=== PATIENT | male | born 1945 | race Caucasian/White ===

== ENCOUNTER 2023-04-14 09:29 | Emergency (ER) | payer OTHER ==
[2023-04-14 09:43] VITALS: TEMP 99; BMI 26.6
[2023-04-14] MEDS ORDERED: CLOPIDOGREL BISULFATE 75 MG TABLET (FP) ONE (10:39)
[2023-04-14] MEDS ORDERED: RAMIPRIL 5 MG CAPSULE ONE (10:39)
[2023-04-14] MEDS ORDERED: CARVEDILOL 12.5 MG TABLET (FP) ONE (10:39)
[2023-04-14] MEDS ORDERED: PANTOPRAZOLE 40 MG TABLET PO ONE (10:39)
[2023-04-14] MEDS: CLOPIDOGREL BISULFATE 75 MG TABLET (FP) PO ONE (10:42)
[2023-04-14] MEDS: PANTOPRAZOLE 40 MG TABLET PO ONE (10:42)
[2023-04-14] MEDS: CARVEDILOL 12.5 MG TABLET (FP) PO ONE (10:42)
[2023-04-14] MEDS: RAMIPRIL 5 MG CAPSULE PO ONE (10:42)
[2023-04-14] MEDS: ROSUVASTATIN CA 40 MG TABLET PO ONE (10:44)
[2023-04-14 10:55] LABS: BASO % 0.4 % (0-2.0); EOS % 0.3 % (0-4.5); HEMATOCRIT 35.7 % (35.4-49); HEMOGLOBIN 11.8 GM/dL (11.7-16.9); LYMPH % 12.6 % (8-40); MCH 28.6 pg (25.7-33.7); MCHC 33.1 g/dl (32.0-35.9); MEAN CELL VOLUME 86.2 fl (80-96); MEAN PLT VOLUME 7.5 fl (7.5-11.1); MONO % 9.3 % (3.8-10.2); NEUT % 77.4 % (42.8-82.8); PLATELET COUNT 368 10^3/uL (134-434); RBC 4.14 M/mm3 (4.00-5.60); RDW 16.3 % (11.9-15.9); WHITE BLOOD COUNT 12.4 K/mm3 (4.0-10.0)
[2023-04-14 10:57] LABS: EPI CELLS 0 /uL (0-25.1); HYALINE CASTS 0 /uL (0-3.1); URINE APPEARANCE CLOUDY; URINE BACTERIA 38 /uL (0-1359); URINE BILIRUBIN NEGATIVE (NEGATIVE); URINE COLOR YELLOW; URINE GLUCOSE (UA) NEGATIVE (NEGATIVE); URINE KETONE TRACE (NEGATIVE); URINE LEUK ESTERASE 2+ (NEGATIVE); URINE NITRITE NEGATIVE (NEGATIVE); URINE PROTEIN 2+ (NEGATIVE); URINE RBC 116 /uL (0-23.9); URINE UROBILINOGEN 0.2 mg/dL (0.2-1.0); URINE WBC 1350 /uL (0-25.8)
[2023-04-14 11:34] LABS: POTASSIUM 4.2 mmol/L (3.5-5.1)
[2023-04-14 11:37] LABS: CALCIUM 9.6 mg/dL (8.5-10.1)
[2023-04-14 11:38] LABS: ALBUMIN 3.5 g/dl (3.4-5.0); BLOOD UREA NITROGEN 9.8 mg/dL (7-18)
[2023-04-14 11:41] LABS: CREATININE 0.9 mg/dL (0.55-1.3)
[2023-04-14 11:43] LABS: BILIRUBIN,TOTAL 0.5 mg/dL (0.2-1); TOT PROT 7.3 g/dl (6.4-8.2)
[2023-04-14] MEDS ORDERED: CEFTRIAXONE 1 GM/50 ML BAG ONE (11:45)
[2023-04-14 11:49] VITALS: BP 131/83; PULSE 75; RESP 19
[2023-04-14] MEDS: CEFTRIAXONE 1 GM in DEXTROSE 5%-WATER - 100 ML IVPB ONE (11:49)
[2023-04-14 13:07] LABS: YEAST NONE SEEN (NEGATIVE)
== END 2023-04-14 12:28 | disposition home or self-care (01) ==
LOC: JER 09:29
DX: R35.0 Frequency of micturition (principal); R10.13 Epigastric pain; R30.0 Dysuria; M54.50 Low back pain, unspecified; N39.0 Urinary tract infection, site not specified
CPT/HCPCS: 36415; 80053; 81003; 82962; 85025; 87086; 87186; 93005; 93010; 96365; 99285-25